=== PATIENT | male | born 1955 | race Caucasian/White ===

== ENCOUNTER 2019-06-21 10:43 | Inpatient (IN) ==
[2019-06-21] MEDS ORDERED: PIPERACILL/TAZOBAC CONSULT ACTIVE PRN (13:24)
[2019-06-21] MEDS ORDERED: ACETAMINOPHEN 325 MG TAB PO PRN (13:35)
[2019-06-21] MEDS ORDERED: MoRPHine SULFATE 2 MG/ML CARP IV PRN (13:35)
[2019-06-21] MEDS ORDERED: PIPERACILLIN/TAZOBACTAM 3.375 GM in DEXTROSE 5% 100 ML IV STA (13:44)
[2019-06-21 14:11] LABS: Basophils # (auto) 0.16 K/uL (0-0.2); Basophils % (auto) 2.6 %; Eosinophils % (auto) 6.6 %; Hematocrit (blood only) 37.4 % (42-52); Hemoglobin 12.9 g/dL (14.0-18.0); Immature Granulocytes # (auto) 0.02 K/uL (0.00-0.02); Immature Granulocytes % (auto) 0.3 %; Lymphocytes # (auto) 2.01 K/uL (1.2-3.4); Lymphocytes % (auto) 33.3 %; Mean Corpuscular Hgb Conc 34.5 g/dL (32-36); Mean Corpuscular Volume 100.5 fL (80-100); Mean Platelet Volume 9.3 fL (7.4-10.4); Monocytes # (auto) 0.65 K/uL (0.11-0.59); Monocytes % (auto) 10.8 %; Neutrophils % (auto) 46.4 %; Platelet Count 280 K/uL (130-400); RDW Coefficient of Variation 12.9 % (11.5-14.5); RDW Standard Deviation 47.1 fL (36.4-46.3); Red Blood Count 3.72 M/uL (4.7-6.1); White Blood Count 6.04 K/uL (4.8-10.8)
--- NOTE | 2019-06-21 14:15 | History & Physical Report ---
Date of Service June 21, 2019 Assessment & Plan (1) Severe peripheral arterial disease: Pt with reported significant arterial disease, s/p CREW LEADER GLUING R external iliac and common fem art. Femoral pulses palpable, will order US to verify patentcy, since prior films from [facility] not available. Present on Admission?: Yes (2) Gangrene of right foot: Pt with significant infection/wet gangrene of RLE. Admit med surg for IV abx, pain control, and medical optimization prior to surgical intervention. Start Zosyn. Consult hospitalist d/t HTN, malnutrition, hx ETOH abuse, reported anemia. Pt and family aware that RLE not salvageable and will require BKA vs AKA. Tentatively planned for WEDNESDAY, 06/23. Patient was seen, examined, and chart reviewed. Agree with exam and treatment plan of the Vascular PA. Present on Admission?: Yes (3) Rash: Pt with generalized rash, appearance consistent with fungal infection. Will have pt eval by ID prior to BKA on WEDNESDAY. Present on Admission?: Yes History of Present Illness Chief Complaint: RLE gangrene Primary Care Provider: Cathy Juarez 63 yo m without significant medical hx, seen in office today in consultation for RLE PAD with gangrene. Per pt family, pt has not been seen by a physician in 20-30 yrs. He began to develop discoloration of R toes/foot approx 2-3 months ago and refused to go to hospital at the time. He eventually agreed and was seen at [facility] on 05/08/19, where he was admitted and underwent angiography with CREW LEADER GLUING of R external iliac and common fem art on 05/10/19. Per family, there were plans for pt to undergo RLE amputation, but they ended up canceling it d/t malnutrition and anemia. He was discharged to assisted living. Family is very concerned about the appearance of his foot, they believe it is significantly worse and pt is not on any abx. They did not think he should wait until his next appt at [facility] (around Jul 11), and wanted his RLE amputation as soon as possible. Pt also with a generalized rash, for which topical antifungal cream was ordered for his leg, however, the rash is generalized, not just RLE. Pt is [place]. He is also poor historian d/t many years of significant ETOH use( 3 cases a week). He has hx of smoking 3 PPD x 50 yrs. He quit both cold turkey upon admission last month. Pt was fully ambulatory and independent until admission last month. Pt still able to ambulate with crutches and easily transfers using LLE. Pt denies MOONEY, fever, chest pain, abd pain, N/V, SOB, other complaints. Allergies Allergy/AdvReac Type Severity Reaction Status Date / Time No Known Allergies Allergy Unverified 06/21/19 13:15 Home Medications Home Medications Medication Instructions Recorded Confirmed Type amlodipine 5 mg PO DAILY 06/21/19 06/21/19 History aspirin 81 mg PO DAILY 06/21/19 06/21/19 History clopidogrel [Plavix] 75 mg PO DAILY 06/21/19 06/21/19 History ergocalciferol (vitamin D2) 50,000 unit PO DAILY 06/21/19 06/21/19 History [Vitamin D2] ferrous gluconate 324 mg PO BID 06/21/19 06/21/19 History folic acid 1 mg PO DAILY 06/21/19 06/21/19 History multivitamin 1 tab PO DAILY 06/21/19 06/21/19 History Past Med/Surg History Medical History Alcohol abuse Hypertension Malnutrition Severe peripheral arterial disease Surgical History History of angioplasty per family pt. had an angioplasty at [facility] in May 2019 Family History Father Coronary heart disease Social History Preferred Language: Armenian Communication Ability: Effective Wood Polisher Required: No Beliefs That Will Affect Care: None Current Living Situation: Spouse Current Living Situation Comment: was living in a personal care facility until today, released home to family Other Information That Helps Us Care for You: No (wa) Feels Safe at Home: Yes Smoking Status: Former smoker Smoking End Date: 05/08/2019 ; Second Hand Exposure: No ; Hx Alcohol Use: Yes Alcohol type: beer Alcohol Intake Frequency: Daily Alcohol Intake Frequency Comment: 3-4 beers a day Hx Substance Use: No Review of Systems All systems reviewed & are unremarkable except as noted in HPI & below (difficult to elicit d/t mild dementia) Physical Exam Constitutional: WD/WN, vitals as above well developed, + thin, + cachectic, + frail appearing, cooperative and comfortable; + not well nourished, not ill appearing, not in distress and not combative Eyes: PERRL, conjunctivae normal, anicteric sclerae EOM intact bilaterally ENMT: external ear and nose normal, oropharynx normal Ears: + hearing impairment Nose: no nasal discharge Throat: no posterior oropharynx abnormality Neck: trachea midline, no thyromegaly Respiratory: able to speak in complete sentences; does not use accessory muscles and no cough Auscultation: + diminished lung sounds; no rhonchi and no wheezes Cardiovascular: RRR, no murmur, no edema Heart Sounds: no gallop and no murmur Vessels: femoral pulses present, brachial pulses present and radial pulses present; no carotid bruit, + abnormal peripheral pulses, + posterior tibial pulses abnormal and + dorsalis pedis pulses abnormal Extremities: normal capillary refill (LLE normal. RLE gangrene/mummified) Chest (Breasts): Chest: normal inspection of chest Gastrointestinal (Abdomen): normal bowel sounds, soft, nontender, no hepatosplenomegaly Inspection/Auscultation: abdomen normal to inspection and normal bowel sounds; abdomen not distended and no abdominal edema Percussion/Palpation: abdomen soft; abdomen nontender, no guarding and abdomen not rigid Musculoskeletal: no cyanosis or clubbing, extremities motor strength 5/5 Head/Neck/Chest: normocephalic and head atraumatic Extremities: + foot abnormality Right (wet gangrene, edema, erythema, odor, toes to ankle); + extremities abnormal to inspection Skin: normal turgor, + rash (generalized, patchy rash, nontender, no warmth, consistent with fungal infe) and + eschar (R foot) Neurologic: moves all extremities, awake and + confused; no focal motor deficits Speech / Cognition: no expressive aphasia and no receptive aphasia Motor/Sensory: no tremor and no sensory deficit Cranial Nerves: EOM intact bilaterally and normal facial strength Psychiatric: Orientation: alert, oriented to person and oriented to place Apperance: appropriately dressed, appropriately groomed and appeared stated age Affect: euthymic affect and + flat affect Thought Process: + thought process not goal directed, + thought process not linear or logical and + thought process not clear or coherent Cognition: attention grossly intact and language grossly intact; + recent memory not intact and + remote memory not intact Results & Data Vital Signs (Past 12 Hours) Vital Signs Temp Pulse Resp BP Pulse Ox 06/21/19 11:09 36.6 C 76 16 167/69 H 98
[2019-06-21 14:27] LABS: INR 1.1 (0.9-1.1); Partial Thromboplastin Ratio 0.9; Partial Thromboplastin Time 24.8 Seconds (21.0-31.0)
[2019-06-21 14:38] LABS: Alanine Aminotransferase 17 U/L (12-78); Aspartate Aminotransferase 17 U/L (15-37); BUN Creatinine Ratio 22.7 (10-20); Blood Urea Nitrogen 13 mg/dl (7-18); Calcium 9.2 mg/dl (8.5-10.1); Carbon Dioxide 28 mmol/L (21-32); Chloride 106 mmol/L (98-107); Glucose 78 mg/dl (70-99); Potassium 4.1 mmol/L (3.5-5.1); Sodium 140 mmol/L (136-145)
[2019-06-21 14:41] LABS: Albumin Globulin Ratio 0.6 (0.9-2); Alkaline Phosphatase 127 U/L (45-117); Bilirubin,Total 0.4 mg/dl (0.2-1); Globulin 4.7 gm/dl (2.5-4.0); Total Protein 7.7 gm/dl (6.4-8.2)
--- NOTE | 2019-06-21 14:41 | Infectious Disease Consult ---
Date of Consultation June 21, 2019 Assessment & Plan (1) Gangrene of right foot: continue emperic abx, would suggest addition of ESR, procalcitonin to routine labs. will likely need surgery, following, await plan. Unclear etiology of rash, not drug eruption. History of Present Illness Attending Physician: Phi Eldridge MD pt admitted with gangrene right foot, states his foot has been painful and discolored for some weeks, states he is not sure if it is getting worse. States he came to ER "because of my ". He is eating lunch on my exam and denies pain, no f/c at home. afebrile in ER. no bleeding or drainage from foot, foul odor noted. He is started on zosyn, tolerating well. no labs, cultures, imaging to review at time of consult. Surgery following. Denies allergies, denies taking any meds at home, denies any pmh. no abd pain, no n/v/d. no cp, sob, cough. ID consulted for rash and gangrene, pt denies rash except for rash on right hand, denies trauma, pain, or itching or drainage. Allergies Allergy/AdvReac Type Severity Reaction Status Date / Time No Known Allergies Allergy Unverified 06/21/19 13:15 Home Medications Home Medications Medication Instructions Recorded Confirmed Type amlodipine 5 mg PO DAILY 06/21/19 06/21/19 History aspirin 81 mg PO DAILY 06/21/19 06/21/19 History clopidogrel [Plavix] 75 mg PO DAILY 06/21/19 06/21/19 History ergocalciferol (vitamin D2) 50,000 unit PO DAILY 06/21/19 06/21/19 History [Vitamin D2] ferrous gluconate 324 mg PO BID 06/21/19 06/21/19 History folic acid 1 mg PO DAILY 06/21/19 06/21/19 History multivitamin 1 tab PO DAILY 06/21/19 06/21/19 History Patient History Medical History Alcohol abuse Hypertension Malnutrition Severe peripheral arterial disease Surgical History History of angioplasty per family pt. had an angioplasty at [facility] in May 2019 Social History Preferred Language: Thai Communication Ability: Effective Group Insurance Specialist Required: No Beliefs That Will Affect Care: None Current Living Situation: Spouse Current Living Situation Comment: was living in a personal care facility until today, released home to family Other Information That Helps Us Care for You: No (wa) Feels Safe at Home: Yes Smoking Status: Former smoker Smoking End Date: 05/08/2019 ; Second Hand Exposure: No ; Hx Alcohol Use: No Hx Substance Use: No Review of Systems Review of Systems: All systems reviewed & are unremarkable except as noted in HPI & below Physical Exam Constitutional: WD/WN, vitals as above Eyes: PERRL, conjunctivae normal, anicteric sclerae ENMT: external ear and nose normal, oropharynx normal Neck: normal visual inspection Respiratory: normal respiratory effort, lungs clear to auscultation Cardiovascular: RRR, no murmur, no edema Gastrointestinal (Abdomen): normal bowel sounds, soft, nontender, no hepatosplenomegaly Musculoskeletal: no cyanosis or clubbing, extremities motor strength 5/5 Skin: no rashes, warm and dry + rash, + skin atrophy and + excoriations right foot dressing intact, darkened black, necrotic, foul smelling tissue right first toe/distal foot. Psychiatric: A+Ox3, euthymic affect Results & Data Vital Signs (Past 12 Hours) Vital Signs Temp Pulse Resp BP Pulse Ox 06/21/19 11:09 36.6 C 76 16 167/69 H 98 PG Care Time/CCT Total # of Minutes Spent Total Time Spent with Patient: Total time spent is greater than 50% in coordination of care (as documented) at patient's floor/unit and/or counseling patient:
[2019-06-21] MEDS ORDERED: PATIENT'S HEIGHT AND/OR WEIGHT NEEDED SCH (15:15)
--- NOTE | 2019-06-21 15:34 | Hospitalist Consultation ---
Date of Consultation June 21, 2019 Assessment & Plan (1) Gangrene of right foot: continue on Zosyn, ID following plan for either BKA or AKA on 06/23, patient is aware of the plans for pre op work up will get EKG and CXR Cr is acceptable no murmurs on exam to suggest valve disease, no need for Echo at this time (2) Severe peripheral arterial disease: vascular surgery checking arterial doppler continue on aspirin and plavix (3) HTN (hypertension): continue on Norvasc BP is 167/69 (4) Rash: unclear etiology, will continue to follow does not appear to be drug eruption (5) Anemia: Hb is stable at 12.9gm continue on Ferrous sulfate MCV is high at 100 (6) Alcohol abuse: unclear how much he drinks, he admits to 3-4 a day but may be more will place on Gabapentin protocol Ativan PRN (7) Tobacco abuse: smokes 1ppd will educate on stopping after surgery History of Present Illness Reason for Consultation: Medical management Requesting Physician: Dr. Eldridge Attending Physician: Phi Eldridge MD History of Present Illness 63 yo male with history of peripheral vascular disease, hypertension, tobacco abuse and alcohol abuse presents as a transfer for wet gangrene of the right foot and need for amputation with vascular surgery. The patient says that his foot has been dark and infected for about 6 months, getting worse slowly. He has had AURICULAR THERAPIST to the iliac and femoral artery on the right. He has been on antibiotics but it became quite clear that the foot was no salvagable. Will need to determine if he should have AKA or BKA based on arterial dopplers and blood flow. He denies severe pain in the foot, just subtle and intermittent. He admits to foul odor from the foot and drainage. He denies any fever or chills. He denies any chest pain, dyspnea, cough, GI symptoms. He admits to a diffuse rash. He is not the greatest historian, cannot tell me what medications he takes, he says his handles it because he takes too many for him to remember. He cannot tell me any of his medical history. He denies every having a heart attack. He denies having lung disease like COPD. He says that he still smokes 1 ppd of cigarettes, has smoked since he was a teenager. He drinks beer, 3-4 at a time but says that he does not drink every day. Asked him if he has ever gone a few days without drinking, he says that he has, denies any tremors or shakes. 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 He says that his father had heart disease, cannot remember if his mother had any illnesses. He denies any diseases in his siblings. Attempted to call his and son for further background, no answer. Allergies Allergy/AdvReac Type Severity Reaction Status Date / Time No Known Allergies Allergy Unverified 06/21/19 13:15 Home Medications Home Medications Medication Instructions Recorded Confirmed Type amlodipine 5 mg PO DAILY 06/21/19 06/21/19 History aspirin 81 mg PO DAILY 06/21/19 06/21/19 History clopidogrel [Plavix] 75 mg PO DAILY 06/21/19 06/21/19 History ergocalciferol (vitamin D2) 50,000 unit PO DAILY 06/21/19 06/21/19 History [Vitamin D2] ferrous gluconate 324 mg PO BID 06/21/19 06/21/19 History folic acid 1 mg PO DAILY 06/21/19 06/21/19 History multivitamin 1 tab PO DAILY 06/21/19 06/21/19 History Patient History Medical History Alcohol abuse Hypertension Malnutrition Severe peripheral arterial disease Surgical History History of angioplasty per family pt. had an angioplasty at [facility] in May 2019 Family History Father Coronary heart disease Social History Preferred Language: Korean Communication Ability: Effective Physical Ther Required: No Beliefs That Will Affect Care: None Current Living Situation: Spouse Current Living Situation Comment: was living in a personal care facility until today, released home to family Other Information That Helps Us Care for You: No (wa) Feels Safe at Home: Yes Smoking Status: Former smoker Smoking End Date: 05/08/2019 ; Second Hand Exposure: No ; Hx Alcohol Use: Yes Alcohol type: beer Alcohol Intake Frequency: Daily Alcohol Intake Frequency Comment: 3-4 beers a day Hx Substance Use: No Review of Systems Review of Systems: All systems reviewed & are unremarkable except as noted in HPI & below Constitutional: no fever, no chills, no sweats, no fatigue and no weakness Ear, Nose, Mouth, Throat: + dental caries and + loose teeth Respiratory: no cough, no dyspnea and no wheezing Cardiovascular: + claudication; no chest pain and no edema Gastrointestinal: no abdominal pain, no nausea, no vomiting, no constipation and no diarrhea/loose stools Genitourinary: no dysuria and no difficulty urinating Musculoskeletal: no back pain, no joint pain, no swelling and no myalgia Integumentary: + rash (diffuse, erythematous) and + wounds (right foot) Physical Exam 2 Constitutional: WD/WN, vitals as above + thin Eyes: PERRL, conjunctivae normal, anicteric sclerae ENMT: external ear and nose normal, oropharynx normal Mouth: + dental caries, + poor dentition and + loose teeth Neck: trachea midline, no thyromegaly Respiratory: normal respiratory effort, lungs clear to auscultation Cardiovascular: RRR, no murmur, no edema Vessels: femoral pulses present and radial pulses present; + abnormal peripheral pulses, + posterior tibial pulses abnormal and + dorsalis pedis pulses abnormal Extremities: + abnormal capillary refill Gastrointestinal (Abdomen): normal bowel sounds, soft, nontender, no hepatosplenomegaly Musculoskeletal: no cyanosis or clubbing, extremities motor strength 5/5 Skin: + rash (diffuse, erythematous) and + wound (wet gangrene right foot and toes) Neurologic: patellar DTR's 2+ bilat, sensation intact and PERRL, EOMI, accommodation nl, no face palsy, no dysarthria Psychiatric: A+Ox3, euthymic affect Estimated Intelligence: average estimated intelligence Insight: + limited insight Lymphatic: no cervical or axillary lymphadenopathy Results & Data Vital Signs (Past 12 Hours) Vital Signs Temp Pulse Resp BP Pulse Ox 06/21/19 11:09 36.6 C 76 16 167/69 H 98 Laboratory Results Laboratory Results - last 24 hr 06/21/19 06/21/19 06/21/19 13:58 13:58 13:58 WBC 6.04 RBC 3.72 L Hgb 12.9 L Hct 37.4 L MCV 100.5 H MCH 34.7 H MCHC 34.5 RDW Std Deviation 47.1 H RDW Coeff of Emeli 12.9 Plt Count 280 MPV 9.3 Immature Gran % (Auto) 0.3 Neut % (Auto) 46.4 Lymph % (Auto) 33.3 Foster % (Auto) 10.8 Eos % (Auto) 6.6 Baso % (Auto) 2.6 Immature Gran # (Auto) 0.02 Neut # (Auto) 2.80 Lymph # (Auto) 2.01 Foster # (Auto) 0.65 H Eos # (Auto) 0.40 Baso # (Auto) 0.16 PT 11.0 INR 1.1 APTT 24.8 PTT Ratio 0.9 Sodium 140 Potassium 4.1 Chloride 106 Carbon Dioxide 28 Anion Gap 6.0 BUN 13 Creatinine 0.59 L Est Cr Clr Drug Dosing Not Reportable Est GFR ( Amer) 124.0 Est GFR (Non-Af Amer) 107.0 BUN/Creatinine Ratio 22.7 H Glucose 78 Calcium 9.2 Total Bilirubin 0.4 AST 17 ALT 17 Alkaline Phosphatase 127 H Total Protein 7.7 Albumin 3.0 L Globulin 4.7 H Albumin/Globulin Ratio 0.6 L Medications Administered Current Inpatient Medications Acetaminophen (Tylenol) 650 mg PO Q6H PRN PRN Reason: MILD Pain (Scale 1,2,3) Stop: 07/21/19 13:34 Amlodipine Besylate (Norvasc) 5 mg PO DAILY LAURA Stop: 07/22/19 08:59 Aspirin (Ecotrin Ectab) 81 mg PO DAILY LAURA Stop: 07/22/19 08:59 Clopidogrel Bisulfate (Plavix) 75 mg PO DAILY LAURA Stop: 07/22/19 08:59 Enoxaparin Sodium (Lovenox) 30 mg SQ QAM LAURA Stop: 07/22/19 08:59 Ergocalciferol (Vitamin D2) 50,000 units PO DAILY LAURA Stop: 07/22/19 08:59 Ferrous Gluconate (Ferrous Gluconate) 324 mg PO BID LAURA Stop: 07/21/19 20:59 Folic Acid (Folvite) 1 mg PO DAILY LAURA Stop: 07/22/19 08:59 Miscellaneous (Patient's Height And/Or Weight Needed) 1 ea N/A Q2H LAURA Stop: 07/21/19 15:14 Last Admin: 06/21/19 15:37 Dose: 1 ea Documented by: Miscellaneous Information (Consult) 1 ea N/A UD PRN PRN Reason: Consult Stop: 07/21/19 13:23 Morphine Sulfate (Morphine Sulfate) 2 mg IV Q3H PRN PRN Reason: SEVERE Pain (Scale 7,8,9,10) Stop: 07/05/19 13:34 Multivitamins (Multivitamin Tab) 1 tab PO DAILY LAURA Stop: 07/22/19 08:59 Oxycodone/Acetaminophen (Percocet 5mg/325mg) 1 tab PO Q4H PRN PRN Reason: MODERATE Pain (Scale 4,5,6) Stop: 07/05/19 13:34 PG Care Time/CCT Total # of Minutes Spent Total Time Spent with Patient: Total time spent is greater than 50% in coordin ation of care (as documented) at patient's floor/unit and/or counseling patient:
[2019-06-21] MEDS ORDERED: LORazepam 1 MG TAB PO PRN (15:49)
[2019-06-21] MEDS ORDERED: GABAPENTIN 800MG ALCOHOL WITHDRAWAL LOAD PO STA (15:49)
[2019-06-21] MEDS ORDERED: GABAPENTIN 400 MG CAP PO ONE (16:00)
--- NOTE | 2019-06-21 16:05 | XRay Report ---
XR chest 1V portable CLINICAL HISTORY: pre op COMPARISON STUDY: No previous studies for comparison. FINDINGS: The bones soft tissues and hemidiaphragms are normal. The cardiomediastinal silhouette is n ormal. The lungs are clear. The pulmonary vasculature is normal. Mild emphysematous change IMPRESSION: Mild emphysematous change. No acute process. The above report was generated using voice recognition software. It may contain grammatical, syntax or spelling errors. Electronically signed by: Kumar Macias M.D. 06/21/2019 4:04 PM
--- NOTE | 2019-06-21 17:57 | Ultrasound Report ---
Study: Arterial Doppler of the dominant aorta HISTORY: Atherosclerosis FINDINGS: No evidence for aneurysm. Heavy calcification of the vascular grossman. Velocity characteristics are unremarkable. IMPRESSION: 1. No evidence for aneurysm. 2. Extensive atherosclerotic change. 3. No significant stenotic process by velocity characteristics Electronically signed by: Kumar Macias M.D. 06/21/2019 5:55 PM
--- NOTE | 2019-06-21 18:02 | Ultrasound Report ---
US arterial duplex LE BI CLINICAL HISTORY: PAD with gangrene COMPARISON STUDY: None FINDINGS: Real-time as well as Doppler evaluation of the arterial structures of the lower legs was p erformed. Waveforms are triphasic throughout. Velocity characteristics are unremarkable. Monophasic waveforms throughout the right leg. Velocity characteristics are unremarkable. Biphasic waveforms within the left leg. Velocity characteristics are also unremarkable. The following blood pressure indices were obtained. On the right, posterior tibial is 1.0 and dorsal is pedis is 0.8. On the left, posterior tibial is 1.0 and dorsalis pedis is 1.0. IMPRESSION: 1. Right leg shows moderate dampening of waveforms 2. Velocity characteristics otherwise unremarkable. 3. Mild arterial occlusive change right leg with no evidence for a major stenotic process. The above report was generated using voice recognition software. It may contain grammatical, syntax or spelling errors. Electronically signed by: Kumar Macias M.D. 06/21/2019 6:01 PM
[2019-06-21] MEDS: FERROUS GLUCONATE 324 MG TAB PO SCH (20:34)
[2019-06-21] MEDS: PIPERACILLIN/TAZOBACTAM 3.375 GM in DEXTROSE 5% 100 ML IV SCH (20:34)
[2019-06-21] MEDS: GABAPENTIN 400 MG CAP PO SCH (23:17)
[2019-06-22] MEDS: PIPERACILLIN/TAZOBACTAM 3.375 GM in DEXTROSE 5% 100 ML IV SCH ×3 (03:59→20:12)
[2019-06-22] MEDS: GABAPENTIN 400 MG CAP PO SCH ×3 (03:59→20:13)
--- NOTE | 2019-06-22 08:25 | Surgery Progress Note ---
Date of Service June 22, 2019 Assessment & Plan (1) Gangrene of right foot: At this point we will plan on a below-knee amputation of the right lower extremity. I have discussed the risks options and benefits of the procedure with the patient. The patient understands the risks options and benefits and agrees to the procedure. Subjective Patient has no complaints. His pain is well controlled. We did discuss the level amputation. I recommended a below the knee amputation of the right lower extremity. He understands and is agreeable at this point. This will be scheduled for tomorrow. Physical Exam Physical Exam: On exam he is awake and alert. He is in no apparent distress. His vital signs are stable he is afebrile. There is no changes in his foot. Results & Data Vital Signs (Past 12 Hours) Vital Signs Temp Pulse Resp BP Pulse Ox 06/22/19 07:38 36.9 C 79 16 113/58 L 95 06/22/19 00:58 37.7 C H 06/22/19 00:20 38.2 C H 06/21/19 23:10 38.3 C H 80 16 127/59 L 95 06/21/19 20:38 37.4 C 82 18 163/70 H 92
[2019-06-22] MEDS: CLOPIDOGREL BISULFATE 75 MG TAB PO SCH (08:51)
[2019-06-22] MEDS: THIAMINE HCL 100 MG TAB PO SCH (08:51)
[2019-06-22] MEDS: MULTIVITAMIN TAB PO SCH (08:51)
[2019-06-22] MEDS: FOLIC ACID 1 MG TAB PO SCH (08:51)
[2019-06-22] MEDS: ASPIRIN 81 MG ECTAB PO SCH (08:52)
[2019-06-22] MEDS: AMLODIPINE BESYLATE 5 MG TAB PO SCH (08:52)
[2019-06-22] MEDS: FERROUS GLUCONATE 324 MG TAB PO SCH ×2 (08:52→20:13)
[2019-06-22] MEDS ORDERED: ERGOCALCIFEROL 50,000 UNITS CAP PO SCH (09:00)
[2019-06-22] MEDS ORDERED: ENOXAPARIN INJ 30 MG/0.3 ML SYR SQ SCH (09:00)
[2019-06-22] MEDS ORDERED: FOLIC ACID 1 MG TAB PO SCH (09:00)
--- NOTE | 2019-06-22 12:18 | Hospitalist Progress Note ---
Date of Service June 22, 2019 Assessment & Plan (1) Gangrene of right foot: continue on Zosyn, ID following mild fever last night, normal WBC plan for either BKA or AKA on 06/23, patient is aware of the plans for pre op work up will get EKG and CXR EKG with normal sinus rhythm, CXR mild emphysematous changes, BUN/Cr normal he is medically acceptable for surgery (2) Severe peripheral arterial disease: vascular surgery checking arterial doppler -- no thrombosis or significant stenosis his wave forms are dampened continue on aspirin and plavix (3) HTN (hypertension): continue on Norvasc BP is normal today (4) Rash: unclear etiology, will continue to follow does not appear to be drug eruption stable today, perhaps a little better (5) Anemia: Hb is stable at 12.9gm continue on Ferrous sulfate MCV is high at 100 (6) Alcohol abuse: unclear how much he drinks, he admits to 3-4 a day but may be more will place on Gabapentin protocol Ativan PRN no signs of alcohol withdrawal today (7) Tobacco abuse: smokes 1ppd will educate on stopping after surgery Subjective patient resting in bed, no issues had wound dressed this morning by wound care, very foul odor patient says he is eating well, no chest pain, no dyspnea reviewed labs, stable EKG shows normal sinus rhythm CXR with mild emphysematous changes but nothing else plan for OR tomorrow Review of Systems Review of Systems: All systems reviewed & are unremarkable except as noted in HPI & below Ear, Nose, Mouth, Throat: + dental caries and + loose teeth Cardiovascular: + claudication; no chest pain and no edema Integumentary: + rash (diffuse, erythematous) and + wounds (right foot) Physical Exam Constitutional: WD/WN, vitals as above + thin Eyes: PERRL, conjunctivae normal, anicteric sclerae ENMT: external ear and nose normal, oropharynx normal Mouth: + dental caries, + poor dentition and + loose teeth Neck: trachea midline, no thyromegaly Respiratory: normal respiratory effort, lungs clear to auscultation Cardiovascular: RRR, no murmur, no edema Vessels: femoral pulses present and radial pulses present; + abnormal peripheral pulses, + posterior tibial pulses abnormal and + dorsalis pedis pulses abnormal Extremities: + abnormal capillary refill Gastrointestinal (Abdomen): normal bowel sounds, soft, nontender, no hepatosplenomegaly Musculoskeletal: no cyanosis or clubbing, extremities motor strength 5/5 Skin: + rash (diffuse, erythematous) and + wound (wet gangrene right foot and toes) Neurologic: patellar DTR's 2+ bilat, sensation intact and PERRL, EOMI, a ccommodation nl, no face palsy, no dysarthria Psychiatric: A+Ox3, euthymic affect Estimated Intelligence: average estimated intelligence Insight: + limited insight Lymphatic: no cervical or axillary lymphadenopathy Results & Data Vital Signs (Past 12 Hours) Vital Signs Temp Pulse Resp BP Pulse Ox 06/22/19 11:41 36.9 C 70 16 131/59 L 95 06/22/19 07:38 36.9 C 79 16 113/58 L 95 06/22/19 00:58 37.7 C H 06/22/19 00:20 38.2 C H Laboratory Results Laboratory Results - last 24 hr 06/21/19 06/21/19 06/21/19 13:58 13:58 13:58 WBC 6.04 RBC 3.72 L Hgb 12.9 L Hct 37.4 L MCV 100.5 H MCH 34.7 H MCHC 34.5 RDW Std Deviation 47.1 H RDW Coeff of Emeli 12.9 Plt Count 280 MPV 9.3 Immature Gran % (Auto) 0.3 Neut % (Auto) 46.4 Lymph % (Auto) 33.3 Mccormick % (Auto) 10.8 Eos % (Auto) 6.6 Baso % (Auto) 2.6 Immature Gran # (Auto) 0.02 Neut # (Auto) 2.80 Lymph # (Auto) 2.01 Mccormick # (Auto) 0.65 H Eos # (Auto) 0.40 Baso # (Auto) 0.16 PT 11.0 INR 1.1 APTT 24.8 PTT Ratio 0.9 Sodium 140 Potassium 4.1 Chloride 106 Carbon Dioxide 28 Anion Gap 6.0 BUN 13 Creatinine 0.59 L Est Cr Clr Drug Dosing Not Reportable Est GFR ( Amer) 124.0 Est GFR (Non-Af Amer) 107.0 BUN/Creatinine Ratio 22.7 H Glucose 78 Calcium 9.2 Total Bilirubin 0.4 AST 17 ALT 17 Alkaline Phosphatase 127 H Total Protein 7.7 Albumin 3.0 L Globulin 4.7 H Albumin/Globulin Ratio 0.6 L Folate Nasal Screen MRSA (PCR) 06/21/19 06/21/19 16:15 18:45 WBC RBC Hgb Hct MCV MCH MCHC RDW Std Deviation RDW Coeff of Emeli Plt Count MPV Immature Gran % (Auto) Neut % (Auto) Lymph % (Auto) Mccormick % (Auto) Eos % (Auto) Baso % (Auto) Immature Gran # (Auto) Neut # (Auto) Lymph # (Auto) Mccormick # (Auto) Eos # (Auto) Baso # (Auto) PT INR APTT PTT Ratio Sodium Potassium Chloride Carbon Dioxide Anion Gap BUN Creatinine Est Cr Clr Drug Dosing Est GFR ( Amer) Est GFR (Non-Af Amer) BUN/Creatinine Ratio Glucose Calcium Total Bilirubin AST ALT Alkaline Phosphatase Total Protein Albumin Globulin Albumin/Globulin Ratio Folate > 24.00 Nasal Screen MRSA (PCR) Negative Diagnostic Findings XR chest 1V portable CLINICAL HISTORY: pre op COMPARISON STUDY: No previous studies for comparison. FINDINGS: The bones soft tissues and hemidiaphragms are normal. The cardiomediastinal silhouette is normal. The lungs are clear. The pulmonary vasculature is normal. Mild emphysematous change IMPRESSION: Mild emphysematous change. No acute process. Medications Administered Current Inpatient Medications Acetaminophen (Tylenol) 650 mg PO Q6H PRN PRN Reason: MILD Pain (Scale 1,2,3) Stop: 07/21/19 13:34 Last Admin: 06/21/19 23:42 Dose: 650 mg Documented by: Amlodipine Besylate (Norvasc) 5 mg PO DAILY [facility] Stop: 07/22/19 08:59 Last Admin: 06/22/19 08:52 Dose: 5 mg Documented by: Aspirin (Ecotrin Ectab) 81 mg PO DAILY [facility] Stop: 07/22/19 08:59 Last Admin: 06/22/19 08:52 Dose: 81 mg Documented by: Clopidogrel Bisulfate (Plavix) 75 mg PO DAILY [facility] Stop: 07/22/19 08:59 Last Admin: 06/22/19 08:51 Dose: 75 mg Documented by: Enoxaparin Sodium (Lovenox) 30 mg SQ QAM [facility] Stop: 07/22/19 08:59 Last Admin: 06/22/19 08:52 Dose: 30 mg Documented by: Ferrous Gluconate (Ferrous Gluconate) 324 mg PO BID [facility] Stop: 07/21/19 20:59 Last Admin: 06/22/19 08:52 Dose: 324 mg Documented by: Folic Acid (Folvite) 1 mg PO DAILY [facility] Stop: 07/22/19 08:59 Last Admin: 06/22/19 08:51 Dose: 1 mg Documented by: Gabapentin (Neurontin) 400 mg PO Q12H [facility] Stop: 06/24/19 04:01 Gabapentin (Neurontin) 400 mg PO Q24H [facility] Stop: 06/25/19 04:01 Gabapentin (Neurontin) 400 mg PO Q8H [facility] Stop: 06/23/19 04:01 Last Admin: 06/22/19 11:40 Dose: 400 mg Documented by: Piperacillin Sod/Tazobactam (Sod 3.375 gm/ Dextrose) 115 mls @ 28.75 mls/hr IV Q8H [facility]; Protocol Stop: 07/01/19 19:59 Last Admin: 06/22/19 11:39 Dose: 28.8 mls/hr Documented by: Lorazepam (Ativan) 1 mg PO ONE PRN; Protocol PRN Reason: EtoH Withdrawal AWSS 6-10 Miscellaneous Information (Consult) 1 ea N/A UD PRN PRN Reason: Consult Stop: 07/21/19 13:23 Morphine Sulfate (Morphine Sulfate) 2 mg IV Q3H PRN PRN Reason: SEVERE Pain (Scale 7,8,9,10) Stop: 07/05/19 13:34 Multivitamins (Multivitamin Tab) 1 tab PO DAILY [facility] Stop: 07/22/19 08:59 Last Admin: 06/22/19 08:51 Dose: 1 tab Documented by: Oxycodone/Acetaminophen (Percocet 5mg/325mg) 1 tab PO Q4H PRN PRN Reason: MODERATE Pain (Scale 4,5,6) Stop: 07/05/19 13:34 Thiamine HCl (Vitamin B-1) 100 mg PO QAM [facility] Stop: 07/22/19 08:59 Last Admin: 06/22/19 08:51 Dose: 100 mg Documented by: ECG Indication: other (pre op eval) Rhythm: normal sinus Comparison ECG Date: no prior available PG Care Time/CCT Total # of Minutes Spent Total Time Spent with Patient: Total time spent is greater than 50% in coordination of care (as documented) at patient's floor/unit and/or counseling patient:
--- NOTE | 2019-06-22 13:59 | Infectious Disease Progress Nt ---
Date of Service June 22, 2019 Assessment & Plan (1) Gangrene of right foot: continue zosyn for now, for BKA in am, can stop abx 24 hours post op, surgery will be curative. Subjective tolerating abx, no micro. afebrile. for OR for bka tomorrow. wbc 6 on admission, creat 0.5. Results & Data Vital Signs (Past 12 Hours) Vital Signs Temp Pulse Resp BP Pulse Ox 06/22/19 11:41 36.9 C 70 16 131/59 L 95 06/22/19 07:38 36.9 C 79 16 113/58 L 95 PG Care Time/CCT Total # of Minutes Spent Total Time Spent with Patient: Total time spent is greater than 50% in coordination of care (as documented) at patient's floor/unit and/or counseling patient:
[2019-06-23] MEDS: PIPERACILLIN/TAZOBACTAM 3.375 GM in DEXTROSE 5% 100 ML IV SCH ×3 (04:47→19:54)
[2019-06-23] MEDS: GABAPENTIN 400 MG CAP PO SCH ×2 (04:47→18:51)
[2019-06-23] MEDS: FERROUS GLUCONATE 324 MG TAB PO SCH ×2 (08:48→19:47)
[2019-06-23] MEDS: MULTIVITAMIN TAB PO SCH (08:48)
[2019-06-23] MEDS: AMLODIPINE BESYLATE 5 MG TAB PO SCH (08:48)
[2019-06-23] MEDS: ASPIRIN 81 MG ECTAB PO SCH (08:49)
[2019-06-23] MEDS: THIAMINE HCL 100 MG TAB PO SCH (08:49)
[2019-06-23] MEDS: FOLIC ACID 1 MG TAB PO SCH (08:49)
--- NOTE | 2019-06-23 12:24 | Hospitalist Progress Note ---
Date of Service June 23, 2019 Assessment & Plan (1) Gangrene of right foot: continue on Zosyn, ID following mild fever last night, normal WBC BKA scheduled today at 1400 for pre op work up will get EKG and CXR EKG with normal sinus rhythm, CXR mild emphysematous changes, BUN/Cr normal he is medically acceptable for surgery (2) Severe peripheral arterial disease: vascular surgery checking arterial doppler -- no thrombosis or significant stenosis his wave forms are dampened continue on aspirin and plavix (3) HTN (hypertension): continue on Norvasc BP is normal today (4) Rash: unclear etiology, will continue to follow does not appear to be drug eruption stable today, perhaps a little better (5) Anemia: Hb is stable at 12.9gm on 06/22 continue on Ferrous sulfate MCV is high at 100 (6) Alcohol abuse: unclear how much he drinks, he admits to 3-4 a day but may be more will place on Gabapentin protocol Ativan PRN denies any tremors or anxiety admits that he could use a beer (7) Tobacco abuse: smokes 1ppd will educate on stopping after surgery Subjective patient a little down this morning, getting BKA this afternoon he is trying to look at bright side, happy that at least it is not AKA he says that he hopes he is able to stewart this fall after his surgery he says that he can stew[place] from his porch, [place] on [place] vitals stable, pain controlled no chest pain, no dyspnea Review of Systems Review of Systems: All systems reviewed & are unremarkable except as noted in HPI & below Ear, Nose, Mouth, Throat: + dental caries and + loose teeth Cardiovascular: + claudication; no chest pain and no edema Physical Exam Constitutional: WD/WN, vitals as above + thin Eyes: PERRL, conjunctivae normal, anicteric sclerae ENMT: external ear and nose normal, oropharynx normal Mouth: + dental caries, + poor dentition and + loose teeth Neck: trachea midline, no thyromegaly Respiratory: normal respiratory effort, lungs clear to auscultation Cardiovascular: RRR, no murmur, no edema Vessels: femoral pulses present and radial pulses present; + abnormal peripheral pulses, + posterior tibial pulses abnormal and + dorsalis pedis pulses abnormal Extremities: + abnormal capillary refill Gastrointestinal (Abdomen): normal bowel sounds, soft, nontender, no hepatosplenomegaly Musculoskeletal: no cyanosis or clubbing, extremities motor strength 5/5 Skin: + rash (diffuse, erythematous) and + wound (wet gangrene right foot and toes) Neurologic: patellar DTR's 2+ bilat, sensation intact and PERRL, EOMI, accommodation nl, no face palsy, no dysarthria Psychiatric: A+Ox3, euthymic affect Estimated Intelligence: average estimated intelligence Insight: + limited insight Lymphatic: no cervical or axillary lymphadenopathy Results & Data Vital Signs (Past 12 Hours) Vital Signs Temp Pulse Resp BP Pulse Ox 06/23/19 08:05 37.2 C 72 16 137/58 L 93 Laboratory Results Laboratory Results - last 24 hr 06/22/19 17:12 Blood Type O Positive Antibody Screen NEGATIVE Medications Administered Current Inpatient Medications Acetaminophen (Tylenol) 650 mg PO Q6H PRN PRN Reason: MILD Pain (Scale 1,2,3) Stop: 07/21/19 13:34 Last Admin: 06/21/19 23:42 Dose: 650 mg Documented by: Amlodipine Besylate (Norvasc) 5 mg PO DAILY [facility] Stop: 07/22/19 08:59 Last Admin: 06/23/19 08:48 Dose: 5 mg Documented by: Aspirin (Ecotrin Ectab) 81 mg PO DAILY [facility] Stop: 07/22/19 08:59 Last Admin: 06/23/19 08:49 Dose: 81 mg Documented by: Clopidogrel Bisulfate (Plavix) 75 mg PO DAILY [facility] Stop: 07/22/19 08:59 Last Admin: 06/22/19 08:51 Dose: 75 mg Documented by: Enoxaparin Sodium (Lovenox) 30 mg SQ QAM [facility] Stop: 07/22/19 08:59 Last Admin: 06/22/19 08:52 Dose: 30 mg Documented by: Ferrous Gluconate (Ferrous Gluconate) 324 mg PO BID [facility] Stop: 07/21/19 20:59 Last Admin: 06/23/19 08:48 Dose: 324 mg Documented by: Folic Acid (Folvite) 1 mg PO DAILY [facility] Stop: 07/22/19 08:59 Last Admin: 06/23/19 08:49 Dose: 1 mg Documented by: Gabapentin (Neurontin) 400 mg PO Q12H [facility] Stop: 06/24/19 04:01 Gabapentin (Neurontin) 400 mg PO Q24H [facility] Stop: 06/25/19 04:01 Piperacillin Sod/Tazobactam (Sod 3.375 gm/ Dextrose) 115 mls @ 28.75 mls/hr IV Q8H [facility]; Protocol Stop: 07/01/19 19:59 Last Admin: 06/23/19 12:09 Dose: 28.8 mls/hr Documented by: Lorazepam (Ativan) 1 mg PO ONE PRN; Protocol PRN Reason: EtoH Withdrawal AWSS 6-10 Miscellaneous Information (Consult) 1 ea N/A UD PRN PRN Reason: Consult Stop: 07/21/19 13:23 Morphine Sulfate (Morphine Sulfate) 2 mg IV Q3H PRN PRN Reason: SEVERE Pain (Scale 7,8,9,10) Stop: 07/05/19 13:34 Multivitamins (Multivitamin Tab) 1 tab PO DAILY [facility] Stop: 07/22/19 08:59 Last Admin: 06/23/19 08:48 Dose: 1 tab Documented by: Oxycodone/Acetaminophen (Percocet 5mg/325mg) 1 tab PO Q4H PRN PRN Reason: MODERATE Pain (Scale 4,5,6) Stop: 07/05/19 13:34 Thiamine HCl (Vitamin B-1) 100 mg PO QAM [facility] Stop: 07/22/19 08:59 Last Admin: 06/23/19 08:49 Dose: 100 mg Documented by: PG Care Time/CCT Total # of Minutes Spent Total Time Spent with Patient: Total time spent is greater than 50% in coordination of care (as documented) at patient's floor/unit and/or counseling patient:
[2019-06-23] MEDS ORDERED: DEXAMETHASONE SOD INJ 4 MG/ML VIAL ONE (14:04)
[2019-06-23] MEDS ORDERED: LIDOCAINE HCL 2% 2 ML VIAL/AMP(20MG/ML) INFIL ONE (14:04)
[2019-06-23] MEDS ORDERED: ONDANSETRON INJ 2 MG/ML 2 ML VIAL ONE (14:04)
[2019-06-23] MEDS ORDERED: PROPOFOL IV EMULSION 10 MG/ML 20 ML VIAL IV ONE (14:04)
[2019-06-23] MEDS ORDERED: fentaNYL citrate 100 MCG/2 ML VIAL ONE ×2 (14:06→16:42)
[2019-06-23] MEDS ORDERED: KETAMINE HCL INJ 50 MG/ML 10 ML VIAL ONE (14:06)
--- NOTE | 2019-06-23 14:35 | Anesthesiology Consultation ---
Date of Service June 23, 2019 Assessment & Plan (1) Encounter for pre-operative examination: Chart Review Chart Review: Acceptable Risk for Surgery and Patient NOT seen in Pre Admission Testing Consults Requested none History Surgery Operation Date: 06/23/19 14:00 Proposed Procedures p Right Below Knee Amputation - Phi Eldridge MD Height/Weight Height: 5 ft 6 in Weight: 43.6 kg Allergies Allergy/AdvReac Type Severity Reaction Status Date / Time No Known Allergies Allergy Unverified 06/21/19 13:15 Medications Home Medications Medication Instructions Recorded Confirmed Last Taken amlodipine 5 mg PO DAILY 06/21/19 06/21/19 Unknown aspirin 81 mg PO DAILY 06/21/19 06/21/19 Unknown clopidogrel [Plavix] 75 mg PO DAILY 06/21/19 06/21/19 Unknown ergocalciferol (vitamin D2) 50,000 unit PO DAILY 06/21/19 06/21/19 Unknown [Vitamin D2] ferrous gluconate 324 mg PO BID 06/21/19 06/21/19 Unknown folic acid 1 mg PO DAILY 06/21/19 06/21/19 Unknown multivitamin 1 tab PO DAILY 06/21/19 06/21/19 Unknown Active Medications Generic Name Dose Route Start Last Admin Trade Name Freq PRN Reason Stop Dose Admin Acetaminophen 650 mg 06/21/19 13:35 06/21/19 23:42 Tylenol PO 07/21/19 13:34 650 mg Q6H PRN Administration MILD Pain (Scale 1,2,3) Amlodipine Besylate 5 mg 06/22/19 09:00 06/23/19 08:48 Norvasc PO 07/22/19 08:59 5 mg DAILY [facility] Administration Aspirin 81 mg 06/22/19 09:00 06/23/19 08:49 Ecotrin Ectab PO 07/22/19 08:59 81 mg DAILY [facility] Administration Clopidogrel Bisulfate 75 mg 06/22/19 09:00 06/22/19 08:51 Plavix PO 07/22/19 08:59 75 mg DAILY [facility] Administration Enoxaparin Sodium 30 mg 06/22/19 09:00 06/22/19 08:52 Lovenox SQ 07/22/19 08:59 30 mg QAM [facility] Administration Ferrous Gluconate 324 mg 06/21/19 21:00 06/23/19 08:48 Ferrous Gluconate PO 07/21/19 20:59 324 mg BID [facility] Administration Folic Acid 1 mg 06/22/19 09:00 06/23/19 08:49 Folvite PO 07/22/19 08:59 1 mg DAILY [facility] Administration Piperacillin Sod/Tazobactam 115 mls @ 28.75 mls/hr 06/21/19 20:00 06/23/19 12:09 Sod 3.375 gm/ Dextrose IV 07/01/19 19:59 28.8 mls/hr Q8H [facility] Administration Protocol Multivitamins 1 tab 06/22/19 09:00 06/23/19 08:48 Multivitamin Tab PO 07/22/19 08:59 1 tab DAILY [facility] Administration Thiamine HCl 100 mg 06/22/19 09:00 06/23/19 08:49 Vitamin B-1 PO 07/22/19 08:59 100 mg QAM [facility] Administration NPO Date Last Intake of Fluids: 06/22/19 Time Last Intake of Fluids: 18:00 Last Intake of Fluids Comment: sip with medication Date Last Intake of Solids: 06/22/19 Time Last Intake of Solids: 18:00 Past Medical History Medical History Alcohol abuse Hypertension Malnutrition Severe peripheral arterial disease Exercise / Class Metabolic Activity IV < 2 Limit ADL/Bedbound Past Family History Family History Father Coronary heart disease Past Surgical History Surgical History History of angioplasty per family pt. had an angioplasty at [place] in May 2019 Past Anesthesia History No Hx of Anesthesia Complications and No Family Hx of Anesthesia Complications History of PONV No Hx of PONV and No Hx of Motion Sickness Social History Smoking Status: Former smoker Smoking End Date: 05/08/2019 Hx Alcohol Use: Yes Alcohol type: beer Alcohol Intake Frequency Comment: Pt. drank 3 cases of beer per week. Has not drank since May Hx Substance Use: No Physical Exam Vital Signs Last Vital Signs Temp 37 C 06/23/19 14:30 Pulse 68 06/23/19 14:30 Resp 18 06/23/19 14:30 BP 117/67 06/23/19 14:30 Pulse Ox 98 06/23/19 14:30 Testing Laboratory Results 06/21/19 13:58 06/21/19 13:58 PT 11.0 Seconds (9.0-12.0) 06/21/19 13:58 INR 1.1 (0.9-1.1) 06/21/19 13:58 APTT 24.8 Seconds (21.0-31.0) 06/21/19 13:58 Blood Type O Positive 06/22/19 17:12 Antibody Screen NEGATIVE 06/22/19 17:12 Electrocardiogram Date: 06/21/19 Findings: + NSR @ (71) Normal sinus rhythm Normal ECG No previous ECGs available Confirmed by Santos Rodriguez ([id number]) on 06/21/2019 4:40:34 PM Chest X-Ray Date: 06/21/19 XR chest 1V portable CLINICAL HISTORY: pre op COMPARISON STUDY: No previous studies for comparison. FINDINGS: The bones soft tissues and hemidiaphragms are normal. The cardiomediastinal silhouette is normal. The lungs are clear. The pulmonary v asculature is normal. Mild emphysematous change IMPRESSION: Mild emphysematous change. No acute process.
[2019-06-23] MEDS ORDERED: fentaNYL citrate 100 MCG/2 ML VIAL IV PRN (14:47)
[2019-06-23] MEDS ORDERED: ONDANSETRON INJ 2 MG/ML 2 ML VIAL IV PRN (14:47)
[2019-06-23] MEDS ORDERED: ePHEDrine sulfate 50 MG/ML AMP IV PRN (14:47)
[2019-06-23] MEDS ORDERED: ATROPINE SULFATE 0.1 MG/ML 10ML SYR IV PRN (14:47)
[2019-06-23] MEDS ORDERED: HYDROmorphone INJ 1 MG/ML SYRINGE IV PRN (14:47)
--- NOTE | 2019-06-23 15:06 | History & Physical Bridge Note ---
Date of Service June 23, 2019 History & Physical Bridge Note Patient for a right BKA. I have discussed the risks options and benefits of the procedure with the patient. The patient understands the risks options and benefits and agrees to the procedure. I have examined the patient, reviewed the History & Physical and in the interval since the performance of the History & Physical I have noted the following changes of clinical significance: no changes noted
[2019-06-23] MEDS ORDERED: MIDAZOLAM HCL 1 MG/ML 2ML VIAL ONE (15:48)
[2019-06-23] MEDS ORDERED: ePHEDrine sulfate 50 MG/ML SYR ONE (17:00)
--- NOTE | 2019-06-23 17:37 | Operative Report ---
Post Operative Report Pre & Post Diagnosis Operation Date: 06/23/19 14:00 Pre-Op Diagnosis: RIGHT FOOT GANGRENE Post-Op Diagnosis: RIGHT FOOT GANGRENE Procedure Operation Date: 06/23/19 14:00 Actual Procedures p Right Below Knee Amputation(Right) - Phi Eldridge MD Surgeon Phi Eldridge MD Straightening Roll Operator Veronique Szymanski MD Estimated Blood Loss 100 Findings Consistent with Post-Op Diagnosis Fluids 1000cc crystalloid Specimens right BKA Drains none Anesthesia Type General Complications none Disposition Accompanied Patient To Recovery: No Disposition: Recovery Room Indications right foot gangrene Description of Procedure The patient was taken to the operating room and placed in a supine position. The patient's identity and surgical site were verified. The right leg was prepped and draped from ankle to mid thigh in the usual sterile fashion. A timeout was performed. An incision was made on the anterior surface of the right leg about four fingerbreadths below the tibial tuberosity. This incision was extended about residential around the leg, with the posterior flap extending about the same length more distally. The fibula was dissected out and cut with a reciprocal saw. The tibia was cut approximately 1cm longer than the fibula with a gigli saw. Hemostasis was obtained. The posterior flap was trimmed so that it formed a nice cushion around the tibia. The amputation site was closed using interrupted 2-0 vicryl for the fascia and 3-0 vicryl to approximate some of the dermis. Sandrita were used to close the skin. Dr. Eldridge was present and scrubbed for the entire procedure. At the conclusion of the case all instrument, sponge, and needle counts were correct. The patient tolerated the procedure well and without immediate complication. The patient was taken to the recovery room in satisfactory condition. I attest to the content of the Intraoperative Record and any orders documented therein. Any exceptions are noted below.
--- NOTE | 2019-06-23 17:41 | Post Operative Brief Note ---
Immediate Post Op Note v1 Date of Surgery June 23, 2019 Pre & Post Diagnosis Operation Date: 06/23/19 14:00 Pre-Op Diagnosis: RIGHT FOOT GANGRENE Post-Op Diagnosis: RIGHT FOOT GANGRENE Procedure Operation Date: 06/23/19 14:00 Actual Procedures p Right Below Knee Amputation(Right) - Phi Eldridge MD Surgeon Phi Eldridge MD Fire Technician Veronique Szymanski MD Estimated Blood Loss 100 Findings Consistent with Post-Op Diagnosis Drains Lopez Catheter Anesthesia Type General Complications none Disposition Accompanied Patient To Recovery: No Disposition: Recovery Room
--- NOTE | 2019-06-23 18:21 | Anesthesiology Progress Note ---
Date of Service June 23, 2019 Anesthesia Post Procedure Vital Signs Vital Signs: Temp Pulse Pulse Resp BP Pulse Ox 06/23/19 18:10 69 14 111/67 100 06/23/19 18:00 73 17 127/66 99 06/23/19 17:50 76 16 147/73 H 99 06/23/19 17:42 36.4 C L 74 16 149/78 H 99 06/23/19 14:30 37 C 68 18 117/67 98 06/23/19 08:05 37.2 C 72 16 137/58 L 93 06/22/19 23:57 37.0 C 70 15 140/62 94 Pain Intensity Right Foot: Pain Intensity: 2 Transfer of Care Handoff Completed per policy Notes Mental Status: alert / awake / arousable and participated in evaluation Patient Amnestic to Procedure: Yes Nausea / Vomiting: adequately controlled Pain: adequately controlled Airway Patency, RR, SpO2: stable & adequate BP & HR: stable & adequate Hydration State: stable & adequate Anesthetic Complications: no major complications apparent and Pt Satisfied with anesthetic care
[2019-06-23] MEDS: OXYCODONE/ACETAMINOPHEN 5mg/325mg TAB PO PRN (19:45)
[2019-06-24] MEDS: GABAPENTIN 400 MG CAP PO SCH (04:09)
[2019-06-24] MEDS: PIPERACILLIN/TAZOBACTAM 3.375 GM in DEXTROSE 5% 100 ML IV SCH ×3 (04:09→19:29)
[2019-06-24] MEDS: OXYCODONE/ACETAMINOPHEN 5mg/325mg TAB PO PRN ×3 (04:14→12:48)
--- NOTE | 2019-06-24 08:35 | Surgery Progress Note ---
Date of Service June 24, 2019 Assessment & Plan (1) Below knee amputation status: Doing well Will start PT/OT. Hopefully can place in rehab this coming week Subjective Only complaint is incisional pain Physical Exam Constitutional: WD/WN, vitals as above Musculoskeletal: able to straighten right leg to almost full extension Skin: + wound (dressing intact with some old blood on dressing) Psychiatric: A+Ox3, euthymic affect Results & Data Vital Signs (Past 12 Hours) Vital Signs Temp Pulse Pulse Resp BP Pulse Ox 06/24/19 08:00 36.7 C 63 18 120/54 L 93 06/24/19 04:08 36.6 C 67 16 142/68 H 96 06/23/19 22:53 36.4 C L 67 15 121/57 L 97
[2019-06-24 09:13] LABS: Basophils # (auto) 0.08 K/uL (0-0.2); Eosinophils # (auto) 0.79 K/uL (0-0.5); Eosinophils % (auto) 9.8 %; Hematocrit (blood only) 30.5 % (42-52); Hemoglobin 10.3 g/dL (14.0-18.0); Immature Granulocytes # (auto) 0.01 K/uL (0.00-0.02); Immature Granulocytes % (auto) 0.1 %; Lymphocytes # (auto) 1.55 K/uL (1.2-3.4); Lymphocytes % (auto) 19.2 %; Mean Corpuscular Hgb Conc 33.8 g/dL (32-36); Monocytes # (auto) 0.64 K/uL (0.11-0.59); Monocytes % (auto) 7.9 %; Platelet Count 231 K/uL (130-400); RDW Coefficient of Variation 12.7 % (11.5-14.5); RDW Standard Deviation 46.2 fL (36.4-46.3); Red Blood Count 3.05 M/uL (4.7-6.1); White Blood Count 8.07 K/uL (4.8-10.8)
[2019-06-24 09:44] LABS: BUN Creatinine Ratio 14.9 (10-20); Calcium 8.5 mg/dl (8.5-10.1); Creatinine Clr Calc Pharmacy 61.4 ml/min; Est GFR (African American) 112.4; Est GFR (Non-African American) 96.9
--- NOTE | 2019-06-24 10:26 | Hospitalist Progress Note ---
Date of Service June 24, 2019 Assessment & Plan (1) Gangrene of right foot: treated with Zosyn, ID following could consider stopping since infection is removed normal WBC BKA scheduled today at 1400 for pre op work up will get EKG and CXR EKG with normal sinus rhythm, CXR mild emphysematous changes, BUN/Cr normal he is medically acceptable for surgery (2) Acute blood loss as cause of postoperative anemia: Hb dropped to 10 from 12, anticipated blood loss from BKA will repeat tomorrow type and cross done BP is normal, asymptomatic (3) Severe peripheral arterial disease: vascular surgery checking arterial doppler -- no thrombosis or significant stenosis his wave forms are dampened continue on aspirin and plavix (4) HTN (hypertension): continue on Norvasc BP is normal today (5) Rash: unclear etiology, will continue to follow does not appear to be drug eruption stable today, perhaps a little better (6) Anemia: chronic anemia, likely due to alcohol abuse continue on Ferrous sulfate MCV is high at 100 (7) Alcohol abuse: unclear how much he drinks, he admits to 3-4 a day but may be more will place on Gabapentin protocol Ativan PRN denies any tremors or anxiety admits that he could use a beer (8) Tobacco abuse: smokes 1ppd will educate on stopping after surgery Subjective patient with some pain in right stump after BKA yesterday no chest pain or pressure, no dyspnea, no fever reviewed labs, Hb down slightly to 10 from 12, Cr and electrolytes stable d/w Dr. Eldridge, check labs tomorrow patient is eating no signs of alcohol withdrawal Review of Systems Review of Systems: All systems reviewed & are unremarkable except as noted in HPI & below Constitutional: no fever Respiratory: no cough and no dyspnea Cardiovascular: no chest pain and no edema Gastrointestinal: no abdominal pain, no nausea, no vomiting, no constipation and no diarrhea/loose stools Musculoskeletal: + joint pain (right BKA) Physical Exam Constitutional: WD/WN, vitals as above + thin Eyes: PERRL, conjunctivae normal, anicteric sclerae ENMT: external ear and nose normal, oropharynx normal Mouth: + dental caries, + poor dentition and + loose teeth Neck: trachea midline, no thyromegaly Respiratory: normal respiratory effort, lungs clear to auscultation Cardiovascular: RRR, no murmur, no edema Vessels: femoral pulses present and radial pulses present; + abnormal peripheral pulses, + posterior tibial pulses abnormal and + dorsalis pedis pulses abnormal Extremities: + abnormal capillary refill Gastrointestinal (Abdomen): normal bowel sounds, soft, nontender, no hepatosplenomegaly Musculoskeletal: no cyanosis or clubbing, extremities motor strength 5/5 (s/p right BKA, wound dressed) Skin: + wound (s/p right BKA, incision/stump dressed) Neurologic: patellar DTR's 2+ bilat, sensation intact and PERRL, EOMI, accommodation nl, no face palsy, no dysarthria Psychiatric: A+Ox3, euthymic affect Estimated Intelligence: average estimated intelligence Insight: + limited insight Lymphatic: no cervical or axillary lymphadenopathy Results & Data Vital Signs (Past 12 Hours) Vital Signs Temp Pulse Pulse Resp BP Pulse Ox 06/24/19 08:00 36.7 C 63 18 120/54 L 93 06/24/19 04:08 36.6 C 67 16 142/68 H 96 06/23/19 22:53 36.4 C L 67 15 121/57 L 97 Laboratory Results Laboratory Results - last 24 hr 06/24/19 06/24/19 09:02 09:02 WBC 8.07 RBC 3.05 L Hgb 10.3 L Hct 30.5 L MCV 100.0 MCH 33.8 MCHC 33.8 RDW Std Deviation 46.2 RDW Coeff of Emeli 12.7 Plt Count 231 MPV 9.0 Immature Gran % (Auto) 0.1 Neut % (Auto) 62.0 Lymph % (Auto) 19.2 [place] % (Auto) 7.9 Eos % (Auto) 9.8 Baso % (Auto) 1.0 Immature Gran # (Auto) 0.01 Neut # (Auto) 5.00 Lymph # (Auto) 1.55 [place] # (Auto) 0.64 H Eos # (Auto) 0.79 H Baso # (Auto) 0.08 Sodium 135 L Potassium 4.0 Chloride 101 Carbon Dioxide 30 Anion Gap 4.0 BUN 11 Creatinine 0.75 Est Cr Clr Drug Dosing 61.4 Est GFR ( Amer) 112.4 Est GFR (Non-Af Amer) 96.9 BUN/Creatinine Ratio 14.9 Glucose 113 H Calcium 8.5 Medications Administered Current Inpatient Medications Acetaminophen (Tylenol) 650 mg PO Q6H PRN PRN Reason: MILD Pain (Scale 1,2,3) Stop: 07/21/19 13:34 Last Admin: 06/21/19 23:42 Dose: 650 mg Documented by: Amlodipine Besylate (Norvasc) 5 mg PO DAILY [facility] Stop: 07/22/19 08:59 Last Admin: 06/23/19 08:48 Dose: 5 mg Documented by: Aspirin (Ecotrin Ectab) 81 mg PO DAILY [facility] Stop: 07/22/19 08:59 Last Admin: 06/23/19 08:49 Dose: 81 mg Documented by: Clopidogrel Bisulfate (Plavix) 75 mg PO DAILY [facility] Stop: 07/22/19 08:59 Last Admin: 06/22/19 08:51 Dose: 75 mg Documented by: Ferrous Gluconate (Ferrous Gluconate) 324 mg PO BID [facility] Stop: 07/21/19 20:59 Last Admin: 06/23/19 19:47 Dose: 324 mg Documented by: Folic Acid (Folvite) 1 mg PO DAILY [facility] Stop: 07/22/19 08:59 Last Admin: 06/23/19 08:49 Dose: 1 mg Documented by: Gabapentin (Neurontin) 400 mg PO Q24H [facility] Stop: 06/25/19 04:01 Piperacillin Sod/Tazobactam (Sod 3.375 gm/ Dextrose) 115 mls @ 28.75 mls/hr IV Q8H [facility]; Protocol Stop: 07/01/19 19:59 Last Infusion: 06/24/19 09:25 Dose: Infused Documented by: Lorazepam (Ativan) 1 mg PO ONE PRN; Protocol PRN Reason: EtoH Withdrawal AWSS 6-10 Miscellaneous Information (Consult) 1 ea N/A UD PRN PRN Reason: Consult Stop: 07/21/19 13:23 Morphine Sulfate (Morphine Sulfate) 2 mg IV Q3H PRN PRN Reason: SEVERE Pain (Scale 7,8,9,10) Stop: 07/05/19 13:34 Last Admin: 06/24/19 01:17 Dose: 2 mg Documented by: Multivitamins (Multivitamin Tab) 1 tab PO DAILY [facility] Stop: 07/22/19 08:59 Last Admin: 06/23/19 08:48 Dose: 1 tab Documented by: Oxycodone/Acetaminophen (Percocet 5mg/325mg) 1 tab PO Q4H PRN PRN Reason: MODERATE Pain (Scale 4,5,6) Stop: 07/05/19 13:34 Last Admin: 06/24/19 07:58 Dose: 1 tab Documented by: Thiamine HCl (Vitamin B-1) 100 mg PO QAM [facility] Stop: 07/22/19 08:59 Last Admin: 06/23/19 08:49 Dose: 100 mg Documented by: PG Care Time/CCT Total # of Minutes Spent Total Time Spent with Patient: Total time spent is greater than 50% in coordination of care (as documented) at patient's floor/unit and/or counseling patient:
[2019-06-24] MEDS: ASPIRIN 81 MG ECTAB PO SCH (10:30)
[2019-06-24] MEDS: MULTIVITAMIN TAB PO SCH (10:30)
[2019-06-24] MEDS: FERROUS GLUCONATE 324 MG TAB PO SCH ×2 (10:30→20:12)
[2019-06-24] MEDS: FOLIC ACID 1 MG TAB PO SCH (10:30)
[2019-06-24] MEDS: THIAMINE HCL 100 MG TAB PO SCH (10:31)
[2019-06-24] MEDS: AMLODIPINE BESYLATE 5 MG TAB PO SCH (10:31)
[2019-06-24] MEDS: CLOPIDOGREL BISULFATE 75 MG TAB PO SCH (12:51)
[2019-06-25] MEDS: OXYCODONE/ACETAMINOPHEN 5mg/325mg TAB PO PRN ×2 (00:01→11:48)
[2019-06-25] MEDS ORDERED: GABAPENTIN 400 MG CAP PO SCH (04:00)
[2019-06-25] MEDS: PIPERACILLIN/TAZOBACTAM 3.375 GM in DEXTROSE 5% 100 ML IV SCH (04:57)
[2019-06-25 06:07] LABS: Basophils # (auto) 0.08 K/uL (0-0.2); Basophils % (auto) 1.1 %; Eosinophils # (auto) 0.65 K/uL (0-0.5); Hematocrit (blood only) 27.6 % (42-52); Hemoglobin 9.2 g/dL (14.0-18.0); Immature Granulocytes # (auto) 0.01 K/uL (0.00-0.02); Immature Granulocytes % (auto) 0.1 %; Lymphocytes # (auto) 1.83 K/uL (1.2-3.4); Lymphocytes % (auto) 25.5 %; Mean Corpuscular Hgb Conc 33.3 g/dL (32-36); Mean Corpuscular Volume 98.9 fL (80-100); Mean Platelet Volume 9.7 fL (7.4-10.4); Monocytes # (auto) 0.86 K/uL (0.11-0.59); Neutrophils # (auto) 3.76 K/uL (1.4-6.5); Neutrophils % (auto) 52.3 %; Platelet Count 219 K/uL (130-400); RDW Coefficient of Variation 12.8 % (11.5-14.5); Red Blood Count 2.79 M/uL (4.7-6.1); White Blood Count 7.19 K/uL (4.8-10.8)
[2019-06-25 06:49] LABS: Creatinine Clr Calc Pharmacy 70.8 ml/min; Est GFR (African American) 119.2; Est GFR (Non-African American) 102.8
[2019-06-25] MEDS: ASPIRIN 81 MG ECTAB PO SCH (09:14)
[2019-06-25] MEDS: FERROUS GLUCONATE 324 MG TAB PO SCH ×2 (09:14→20:06)
[2019-06-25] MEDS: THIAMINE HCL 100 MG TAB PO SCH (09:14)
[2019-06-25] MEDS: FOLIC ACID 1 MG TAB PO SCH (09:14)
[2019-06-25] MEDS: MULTIVITAMIN TAB PO SCH (09:14)
[2019-06-25] MEDS: CLOPIDOGREL BISULFATE 75 MG TAB PO SCH (09:14)
[2019-06-25] MEDS: AMLODIPINE BESYLATE 5 MG TAB PO SCH (09:14)
--- NOTE | 2019-06-25 09:18 | Surgery Progress Note ---
Date of Service June 25, 2019 Assessment & Plan (1) Below knee amputation status: At this point his below-knee amputation stump is healing well. We will begin physical therapy occupational therapy. Hopefully we can get him to rehab sometime later this week. Subjective Patient has no complaints today. He is wondering if he could be able to get to [place] during season this year. Physical Exam Physical Exam: His right below-knee amputation stump is healing nicely. Is well approximated. No evidence of ischemia are noted. There is no drainage seen or erythema. Constitutional: WD/WN, vitals as above Results & Data Vital Signs (Past 12 Hours) Vital Signs Temp Pulse Resp BP BP Pulse Ox 06/25/19 07:32 36.9 C 80 16 131/61 96 06/24/19 22:56 37.4 C 66 16 143/71 H 93
--- NOTE | 2019-06-25 15:25 | Hospitalist Progress Note ---
Date of Service June 25, 2019 Assessment & Plan (1) Gangrene of right foot: treated with Zosyn at time of admission discontinued after amputation normal WBC BKA on 06/23 no complications will need rehab (2) Acute blood loss as cause of postoperative anemia: Hb dropped to 10 from 12, anticipated blood loss from BKA Hb is 9.2 today BP is normal, asymptomatic should not lose any further blood (3) Severe peripheral arterial disease: vascular surgery checking arterial doppler -- no thrombosis or significant stenosis his wave forms are dampened continue on aspirin and plavix s/p BKA right leg (4) HTN (hypertension): continue on Norvasc BP is normal today (5) Anemia: chronic anemia, likely due to alcohol abuse continue on Ferrous sulfate MCV is high at 100 (6) Alcohol abuse: unclear how much he drinks, he admits to 3-4 a day but may be more will place on Gabapentin protocol Ativan PRN denies any tremors or anxiety admits that he could use a beer no concerns for withdrawal at this point he will be d/c to rehab, would not require any further Gabapentin after d ischarge (7) Tobacco abuse: smokes 1ppd no intention on quitting Medicine will sign off at this time, medical issues chronic and stable safe to go to rehab once okay with Vascular surgery Subjective patient doing well, no issues over night reviewed labs, Hb down slightly but still > 9 vitals stable patient is eating okay his only concern is whether he will be able to [facility] this year Review of Systems Review of Systems: All systems reviewed & are unremarkable except as noted in HPI & below Constitutional: + fatigue and + weakness; no fever, no chills and no sweats Respiratory: no cough and no dyspnea Cardiovascular: no chest pain, no palpitations and no edema Gastrointestinal: no abdominal pain, no nausea, no vomiting, no constipation and no diarrhea/loose stools Musculoskeletal: + joint pain (right stump) Physical Exam Constitutional: WD/WN, vitals as above + thin Eyes: PERRL, conjunctivae normal, anicteric sclerae ENMT: external ear and nose normal, oropharynx normal Mouth: + dental caries, + poor dentition and + loose teeth Neck: trachea midline, no thyromegaly Respiratory: normal respiratory effort, lungs clear to auscultation Cardiovascular: RRR, no murmur, no edema Vessels: femoral pulses present and radial pulses present; + abnormal peripheral pulses Extremities: + abnormal capillary refill Gastrointestinal (Abdomen): normal bowel sounds, soft, nontender, no hepatosplenomegaly Musculoskeletal: no cyanosis or clubbing, extremities motor strength 5/5 (s/p right BKA, wound dressed) Skin: + wound (s/p right BKA, incision/stump dressed) Neurologic: patellar DTR's 2+ bilat, sensation intact and PERRL, EOMI, accommodation nl, no face palsy, no dysarthria Psychiatric: A+Ox3, euthymic affect Estimated Intelligence: average estimated intelligence Insight: + limited insight Lymphatic: no cervical or axillary lymphadenopathy Results & Data Vital Signs (Past 12 Hours) Vital Signs Temp Pulse Resp BP BP Pulse Ox 06/25/19 14:52 36.7 C 78 19 130/63 96 06/25/19 07:32 36.9 C 80 16 131/61 96 Laboratory Results Laboratory Results - last 24 hr 06/25/19 06/25/19 05:39 05:39 WBC 7.19 RBC 2.79 L Hgb 9.2 L Hct 27.6 L MCV 98.9 MCH 33.0 MCHC 33.3 RDW Std Deviation 46.0 RDW Coeff of Emeli 12.8 Plt Count 219 MPV 9.7 Immature Gran % (Auto) 0.1 Neut % (Auto) 52.3 Lymph % (Auto) 25.5 [place] % (Auto) 12.0 Eos % (Auto) 9.0 Baso % (Auto) 1.1 Immature Gran # (Auto) 0.01 Neut # (Auto) 3.76 Lymph # (Auto) 1.83 [place] # (Auto) 0.86 H Eos # (Auto) 0.65 H Baso # (Auto) 0.08 Creatinine 0.65 Est Cr Clr Drug Dosing 70.8 Est GFR ( Amer) 119.2 Est GFR (Non-Af Amer) 102.8 Medications Administered Current Inpatient Medications Acetaminophen (Tylenol) 650 mg PO Q6H PRN PRN Reason: MILD Pain (Scale 1,2,3) Stop: 07/21/19 13:34 Last Admin: 06/21/19 23:42 Dose: 650 mg Documented by: Amlodipine Besylate (Norvasc) 5 mg PO DAILY [facility] Stop: 07/22/19 08:59 Last Admin: 06/25/19 09:14 Dose: 5 mg Documented by: Aspirin (Ecotrin Ectab) 81 mg PO DAILY [facility] Stop: 07/22/19 08:59 Last Admin: 06/25/19 09:14 Dose: 81 mg Documented by: Clopidogrel Bisulfate (Plavix) 75 mg PO DAILY [facility] Stop: 07/22/19 08:59 Last Admin: 06/25/19 09:14 Dose: 75 mg Documented by: Ferrous Gluconate (Ferrous Gluconate) 324 mg PO BID [facility] Stop: 07/21/19 20:59 Last Admin: 06/25/19 09:14 Dose: 324 mg Documented by: Folic Acid (Folvite) 1 mg PO DAILY [facility] Stop: 07/22/19 08:59 Last Admin: 06/25/19 09:14 Dose: 1 mg Documented by: Lorazepam (Ativan) 1 mg PO ONE PRN; Protocol PRN Reason: EtoH Withdrawal AWSS 6-10 Multivitamins (Multivitamin Tab) 1 tab PO DAILY [facility] Stop: 07/22/19 08:59 Last Admin: 06/25/19 09:14 Dose: 1 tab Documented by: Oxycodone/Acetaminophen (Percocet 5mg/325mg) 1 tab PO Q4H PRN PRN Reason: MODERATE Pain (Scale 4,5,6) Stop: 07/05/19 13:34 Last Admin: 06/25/19 11:48 Dose: 1 tab Documented by: Thiamine HCl (Vitamin B-1) 100 mg PO QAM [facility] Stop: 07/22/19 08:59 Last Admin: 06/25/19 09:14 Dose: 100 mg Documented by: PG Care Time/CCT Total # of Minutes Spent Total Time Spent with Patient: Total time spent is greater than 50% in coordination of care (as documented) at patient's floor/unit and/or counseling patient:
[2019-06-26 06:48] LABS: Creatinine Clr Calc Pharmacy 83.7 ml/min; Est GFR (African American) 127.6; Est GFR (Non-African American) 110.1
--- NOTE | 2019-06-26 08:34 | Anesthesiology Progress Note ---
Date of Service June 26, 2019 Anesthesia Post Procedure Vital Signs Vital Signs: Temp Pulse Pulse Pulse Resp BP BP 06/26/19 07:45 36.9 C 74 16 160/66 H 06/26/19 00:05 06/25/19 23:00 37.2 C 80 16 146/65 H 06/25/19 14:52 36.7 C 78 19 130/63 Pulse Ox Pulse Ox 06/26/19 07:45 98 06/26/19 00:05 95 06/25/19 23:00 95 06/25/19 14:52 96 Pain Intensity Right Foot: Pain Intensity: 2 Right Leg: Pain Intensity: 3 Notes Mental Status: alert / awake / arousable and participated in evaluation Patient Amnestic to Procedure: Yes Nausea / Vomiting: adequately controlled Pain: adequately controlled Airway Patency, RR, SpO2: stable & adequate BP & HR: stable & adequate Hydration State: stable & adequate Anesthetic Complications: no major complications apparent and Pt Satisfied with anesthetic care
[2019-06-26] MEDS: CLOPIDOGREL BISULFATE 75 MG TAB PO SCH (09:01)
[2019-06-26] MEDS: AMLODIPINE BESYLATE 5 MG TAB PO SCH (09:01)
[2019-06-26] MEDS: THIAMINE HCL 100 MG TAB PO SCH (09:01)
[2019-06-26] MEDS: MULTIVITAMIN TAB PO SCH (09:01)
[2019-06-26] MEDS: ASPIRIN 81 MG ECTAB PO SCH (09:01)
[2019-06-26] MEDS: FERROUS GLUCONATE 324 MG TAB PO SCH ×2 (09:01→19:54)
[2019-06-26] MEDS: FOLIC ACID 1 MG TAB PO SCH (09:02)
--- NOTE | 2019-06-26 10:39 | Surgery Progress Note ---
Date of Service June 26, 2019 Assessment & Plan (1) Below knee amputation status: Pt to have PT/OT hopefully today. He is doing very well post op. Can D/C to rehab once placed. Subjective 63 yo m POD #3 after RLE BKA by Dr Eldridge, seen in f/u today. Pt admits mild pain in RLE BKA stump. Denies any other new complaints. States has not yet had therapy. Review of Systems Review of Systems: Difficult to elicit d/t dementia. Denies MOONEY, fever, chest pain, abd pain, N/V, bleeding, other complaints. Physical Exam Constitutional: well developed and + thin; + not well nourished and no acute distress Respiratory: normal respiratory effort, lungs clear to auscultation no cough Auscultation: + diminished lung sounds Cardiovascular: Rate/Rhythm: regular rate and regular rhythm Vessels: + abnormal peripheral pulses Gastrointestinal (Abdomen): normal bowel sounds, soft, nontender, no hepatosplenomegaly Musculoskeletal: Extremities: + amputation noted (RLE BKA C/D/I magnolia+ local tenderness and mild edema.no erythema/ecchymos) Skin: no rashes, warm and dry Results & Data Vital Signs (Past 12 Hours) Vital Signs Temp Pulse Pulse Resp BP Pulse Ox Pulse Ox 06/26/19 07:45 36.9 C 74 16 160/66 H 98 06/26/19 00:05 95 06/25/19 23:00 37.2 C 80 16 146/65 H 95
[2019-06-26] MEDS: OXYCODONE/ACETAMINOPHEN 5mg/325mg TAB PO PRN (11:57)
[2019-06-27 06:48] LABS: Creatinine Clr Calc Pharmacy 85.2 ml/min; Est GFR (African American) 128.6
[2019-06-27] MEDS: FERROUS GLUCONATE 324 MG TAB PO SCH ×2 (08:49→20:44)
[2019-06-27] MEDS: ASPIRIN 81 MG ECTAB PO SCH (08:49)
[2019-06-27] MEDS: FOLIC ACID 1 MG TAB PO SCH (08:49)
[2019-06-27] MEDS: THIAMINE HCL 100 MG TAB PO SCH (08:49)
[2019-06-27] MEDS: MULTIVITAMIN TAB PO SCH (08:49)
[2019-06-27] MEDS: AMLODIPINE BESYLATE 5 MG TAB PO SCH (08:49)
[2019-06-27] MEDS: CLOPIDOGREL BISULFATE 75 MG TAB PO SCH (08:49)
--- NOTE | 2019-06-27 08:53 | Surgery Progress Note ---
Date of Service June 27, 2019 Assessment & Plan (1) Below knee amputation status: Pt has had PT/OT. He is doing very well post op. Can D/C to rehab once placed. Subjective 63 yo m POD #4 after RLE BKA by Dr Eldridge, seen in f/u today. Pt admits mild pain in RLE BKA stump. Denies any other new complaints. Has had PT/OT yesterday. Review of Systems Review of Systems: Difficult to elicit d/t dementia. Denies MOONEY, fever, chest pain, abd pain, N/V, bleeding, other complaints. Physical Exam Constitutional: well developed and + thin; no acute distress Respiratory: normal respiratory effort; no respiratory distress Auscultation: + diminished lung sounds Cardiovascular: Rate/Rhythm: regular rate and regular rhythm Vessels: posterior tibial pulses present (LLE only. RLE bka) and dorsalis pedis pulses present (LLE only. RLE BKA); + abnormal peripheral pulses Extremities: no edema Gastrointestinal (Abdomen): normal bowel sounds, soft, nontender, no hepatosplenomegaly Skin: no rashes RLE BKA site C/D/I with magnolia. + mild local edema and tenderness. No erythema, warmth, or ecchymosis. Psychiatric: Orientation: alert (oriented x2) Affect: + flat affect Results & Data Vital Signs (Past 12 Hours) Vital Signs Temp Pulse Resp BP BP Pulse Ox 06/27/19 07:21 36.6 C 65 18 132/63 98 06/26/19 23:19 37.0 C 69 16 146/56 H 97
[2019-06-27] MEDS: OXYCODONE/ACETAMINOPHEN 5mg/325mg TAB PO PRN (21:55)
[2019-06-28] MEDS: AMLODIPINE BESYLATE 5 MG TAB PO SCH (08:48)
[2019-06-28] MEDS: FERROUS GLUCONATE 324 MG TAB PO SCH (08:48)
[2019-06-28] MEDS: CLOPIDOGREL BISULFATE 75 MG TAB PO SCH (08:48)
[2019-06-28] MEDS: FOLIC ACID 1 MG TAB PO SCH (08:48)
[2019-06-28] MEDS: ASPIRIN 81 MG ECTAB PO SCH (08:49)
[2019-06-28] MEDS: THIAMINE HCL 100 MG TAB PO SCH (08:49)
[2019-06-28] MEDS: MULTIVITAMIN TAB PO SCH (08:49)
--- NOTE | 2019-06-28 09:22 | Surgery Progress Note ---
Date of Service June 28, 2019 Assessment & Plan (1) Below knee amputation status: PT d/c home today. Pt doing well post op, significantly improved from preop. Strongly recommended short term rehab with PT/OT d/t multiple medical problems including malnutrition/low protein, anemia, dementia, and recent surgery (RLE BKA). refuses and insists upon taking him home with home health. Present on Admission?: No Subjective 63 yo m POD #4 after RLE BKA by Dr Eldridge, seen in f/u today. Pt admits mild pain in RLE BKA stump. Denies any other new complaints. Has had PT/OT yesterday. Review of Systems Review of Systems: Difficult to elicit d/t dementia. Denies MOONEY, fever, chest pain, abd pain, N/V, bleeding, other complaints. Physical Exam Constitutional: well developed, + thin, + frail appearing, cooperative and comfortable; + not well nourished and no acute distress Respiratory: normal respiratory effort; no respiratory distress and no cough Auscultation: + diminished lung sounds Cardiovascular: Rate/Rhythm: regular rate and regular rhythm Vessels: posterior tibial pulses present (LLE only. RLE bka) and dorsalis pedis pulses present (LLE only. RLE BKA); + abnormal peripheral pulses Extremities: no edema Gastrointestinal (Abdomen): normal bowel sounds, soft, nontender, no hepatosplenomegaly Musculoskeletal: Extremities: + amputation noted (RLE BKA C/D/I [place]+ local tenderness and mild edema.no erythema/ecchymos) Skin: no rashes, warm and dry Neurologic: moves all extremities, awake and + confused; no focal motor deficits Cranial Nerves: EOM intact bilaterally Psychiatric: Orientation: alert (oriented x2) Affect: euthymic affect and + flat affect Thought Process: + thought process not goal directed, + thought process not linear or logical and + thought process not clear or coherent Cognition: attention grossly intact and language grossly intact; + recent memory not intact and + remote memory not intact Results & Data Vital Signs (Past 12 Hours) Vital Signs Temp Pulse Pulse Resp BP BP Pulse Ox 06/28/19 07:45 36.6 C 72 19 156/74 H 99 06/27/19 23:50 36.7 C 68 16 141/66 H 98
--- NOTE | 2019-06-30 08:38 | Discharge Summary ---
Date of Service June 30, 2019 Admission HPI Per Admitting Provider 63 yo m without significant medical hx, seen in office today in consultation for RLE PAD with gangrene. Per pt family, pt has not been seen by a physician in 20-30 yrs. He began to develop discoloration of R toes/foot approx 2-3 months ago and refused to go to hospital at the time. He eventually agreed and was seen at [facility] on 05/08/19, where he was admitted and underwent angiography with [employer] of R external iliac and common fem art on 05/10/19. Per family, there were plans for pt to undergo RLE amputation, but they ended up canceling it d/t malnutrition and anemia. He was discharged to assisted living. Family is very concerned about the appearance of his foot, they believe it is significantly worse and pt is not on any abx. They did not think he should wait until his next appt at [facility] (around Jul 11), and wanted his RLE amputation as soon as possible. Pt also with a generalized rash, for which topical antifungal cream was ordered for his leg, however, the rash is generalized, not just RLE. Pt is LUMMI. He is also poor historian d/t many years of significant ETOH use( 3 cases a week). He has hx of smoking 3 PPD x 50 yrs. He quit both cold turkey upon admission last month. Pt was fully ambulatory and independent until admission last month. Pt still able to ambulate with crutches and easily transfers using LLE. Pt denies MOONEY, fever, chest pain, abd pain, N/V, SOB, other complaints. Admission Exam Per Admitting Provider Constitutional: WD/WN, vitals as above well developed, + thin, + cachectic, + frail appearing, cooperative and comfortable; + not well nourished, not ill appearing, not in distress and not combative Eyes: PERRL, conjunctivae normal, anicteric sclerae EOM intact bilaterally ENMT: external ear and nose normal, oropharynx normal Ears: + hearing impairment Nose: no nasal discharge Throat: no posterior oropharynx abnormality Neck: trachea midline, no thyromegaly Respiratory: able to speak in complete sentences; does not use accessory muscles and no cough Auscultation: + diminished lung sounds; no rhonchi and no wheezes Cardiovascular: RRR, no murmur, no edema Heart Sounds: no gallop and no murmur Vessels: femoral pulses present, brachial pulses present and radial pulses present; no carotid bruit, + abnormal peripheral pulses, + posterior tibial pulses abnormal and + dorsalis pedis pulses abnormal Extremities: normal capillary refill (LLE normal. RLE gangrene/mummified) Chest (Breasts): Chest: normal inspection of chest Gastrointestinal (Abdomen): normal bowel sounds, soft, nontender, no hepatosplenomegaly Inspection/Auscultation: abdomen normal to inspection and normal bowel sounds; abdomen not distended and no abdominal edema Percussion /Palpation: abdomen soft; abdomen nontender, no guarding and abdomen not rigid Musculoskeletal: no cyanosis or clubbing, extremities motor strength 5/5 Head/Neck/Chest: normocephalic and head atraumatic Extremities: + foot abnormality Right (wet gangrene, edema, erythema, odor, toes to ankle); + extremities abnormal to inspection Skin: normal turgor, + rash (generalized, patchy rash, nontender, no warmth, consistent with fungal infe) and + eschar (R foot) Neurologic: moves all extremities, awake and + confused; no focal motor deficits Speech / Cognition: no expressive aphasia and no receptive aphasia Motor/Sensory: no tremor and no sensory deficit Cranial Nerves: EOM intact bilaterally and normal facial strength Psychiatric: Orientation: alert, oriented to person and oriented to place Apperance: appropriately dressed, appropriately groomed and appeared stated age Affect: euthymic affect and + flat affect Thought Process: + thought process not goal directed, + thought process not linear or logical and + thought process not clear or coherent Cognition: attention grossly intact and language grossly intact; + recent memory not intact and + remote memory not intact Principal Diagnosis 1. s/p RLE Below knee amputation 2. PAD with Gangrene R foot Discharge Exam Constitutional WD/WN, vitals as above Respiratory normal respiratory effort, lungs clear to auscultation Cardiovascular Rate/Rhythm: regular rate and regular rhythm Heart Sounds: no gallop and no murmur Vessels: femoral pulses present, posterior tibial pulses present (LLE only. RLE bka), dorsalis pedis pulses present (LLE only. RLE BKA), brachial pulses present and radial pulses present; no carotid bruit and + abnormal peripheral pulses Gastrointestinal (Abdomen) normal bowel sounds, soft, nontender, no hepatosplenomegaly Musculoskeletal Extremities: + amputation noted (RLE BKA C/D/I magnolia+ local tenderness and mild edema.no erythema/ecchymos) Skin no rashes, warm and dry Neurologic moves all extremities, awake and + confused; no focal motor deficits Speech / Cognition: no expressive aphasia and no receptive aphasia Psychiatric Orientation: alert (oriented x2), oriented to person and oriented to place Affect: + flat affect Thought Process: + thought process not goal directed and + thought process not clear or coherent Cognition: attention grossly intact and language grossly intact; + recent memory not intact and + remote memory not intact Estimated Intelligence: average estimated intelligence Discharge Data Allergies Allergy/AdvReac Type Severity Reaction Status Date / Time No Known Allergies Allergy Unverified 06/21/19 13:15 Consultations 06/21/19 13:30 Consult Infectious Diseases Routine 06/21/19 13:44 Consult Hospitalist Routine 06/21/19 14:35 Consult Case Management - Discharge Planning Routine Procedures Performed Operation Date: 06/23/19 14:00 Actual Procedures p Right Below Knee Amputation(Right) - Phi Eldridge MD Ordered Studies 06/21/19 14:37 US arterial duplex LE BI Routine US duplex aorta/iliacs Routine Hospital Course (1) Below knee amputation status: Pt was admitted from office d/t infection, for abx and definitive surgery. Pt underwent uncomplicated RLE BKA on 06/23 and did essentially well post op. Pt significantly improved from preop. Strongly recommended short term rehab with PT/OT d/t multiple medical problems including malnutrition/low protein, anemia, dementia, and recent surgery (RLE BKA). refuses and insists upon taking him home with home health. Total Time Total Time Spent Total Time Spent (In Minutes): 20 minutes Total Time Includes: Examination of the Patient, Discharge Planning and Me dication Reconciliation Discharge Plan Discharge Items Patient Disposition: Home - Home Health Services Reason For Visit: RIGHT FOOT GANGRENE Discharge Diagnosis: 1. s/p RLE Below Knee Amputation 2. R foot gangrene Condition: Good Discharge Goals: Therapeutic intervention Activity: Per 'Additional Instructions' section Lifting: None Bathing: Keep incision dry Exercise/Sports: Gradually increase as tolerated Driving/Machine Use Comment: No driving Weightbearing: Left weightbearing and Right non-weightbearing Non-emergency contact: Primary Care Provider and Surgeon Call non-emergency contact if: you have any medication questions, your pain is worsening, your temperature is above 101, your wound has increased redness and your wound has increased drainage Follow-up/Referrals: Марина Frazier PA-C [Physician Vehicle Service Agent] - (Needs follow up appt with Dr Eldridge or Марина Frazier PA-C, in 2 weeks for staple removal ) Cathy Juarez DO [Primary Care Provider] - Diet: Heart Healthy Addtl Provider Instructions: 1. May shower and dry RLE gently. Keep RLE BKA wound DRY otherwise, no soaking in water. 2. Leave RLE open to air unless drainage occurs, then may place light dry dressing to area. 3. Keep RLE elevated on pillow if swelling occurs. 4. Call [phone] for follow up appt with Dr Eldridge. Prescriptions: New oxycodone-acetaminophen [Percocet] 5-325 mg Tablet 1 tab PO Q4H PRN (Reason: pain) Qty: 30 RF: 0 Continued amlodipine 5 mg Tablet 5 mg PO DAILY RF: 0 aspirin 81 mg Tablet,Delayed Release (Dr/Ec) 81 mg PO DAILY RF: 0 clopidogrel [Plavix] 75 mg Tablet 75 mg PO DAILY RF: 0 ferrous gluconate 324 mg (37.5 mg iron) Tablet 324 mg PO BID RF: 0 multivitamin Tablet 1 tab PO DAILY RF: 0 folic acid 1 mg Tablet 1 mg PO DAILY RF: 0 Changed ergocalciferol (vitamin D2) [Vitamin D2] 50,000 unit Capsule 50,000 unit PO WK Qty: 0 RF: 0 Stand-Alone Forms: [facility] Discharge Orders: Discharge Order (Routine); Ordered 06/28/19 Ordered By: Марина Frazier Admission Data Admit Date/Time: 06/21/19 10:50 Attending Provider: Phi Eldridge Admit Provider: Phi Eldridge Primary Care Provider: Cathy Juarez Other Providers: Aston Francis ; Lacy English ; Renaldo Hernandez ; Larua Snyder ; Monserrat Dupree ; Olaf Goldberg Robert R. ; Cathy Allen ; Eliazar Obando ; Rafi Patel ; Angel Perea ; Hannah Arenas ; Liliane Krause ; Vira Taveras ; Pablo Kelsey ; Zuleima Cummings ; Hubert Braden. ; Alphonso Perez ; Laura Valdez ; Winifred Farah ; Valdo Gustafson ; Saroj Almaguer ; Seamus Cuellar ; Patrizia Goel ; Michael Browning ; Helen Nash Service: Medical Other Interventions: Discharge Summary Assessment (RN) Last Done: 06/28/19 10:34 Pending Studies at Discharge: No DC Date/Time DO NOT enter until pt leaves facility: 06/28/19 17:15
== END 2019-06-28 17:15 | disposition home health service (06) | DRG 240 ==
LOC: 3W 10:50